=== PATIENT | female | born 1990 ===

== ENCOUNTER 2018-01-14 14:24 | Emergency (ER) | payer SELFPAY ==
[2018-01-14] MEDS ORDERED: XYLOCAINE 1% 20 mL ONE (15:04)
--- NOTE | 2018-01-14 15:05 | Emergency Department Report ---
Abscess Boil HPI - HPI Chief Complaint: Skin/Abscess/Foreign Body Stated Complaint: SPIDER BITE ON FINGER Duration: 5 Days Location: Upper Extremity (left index finger) Severity: Moderate History: Yes Pain, Yes Insect Bite, No Fever, No Purulent Drainage, No Numbness , No Foreign Body, No Previous History HPI: This is a 27-year-old -[place] female who presents with swelling and pain to left 2nd Finger. Patient reports pain as currently 8 out of 10 on pain scale and worse with touch. It is a throbbing constant sensation. There is swelling and drainage to left side. Patient states Thursday she noticed to small dots Center left second finger. She is applying ice with no improvement and swelling. Patient reports swelling and increased today with some drainage. She states she was bitten by spider. She denies numbness, tingling or fever. Home Medications: Previous Rx's Medication Instructions Recorded Last Taken Type Clindamycin [Clindamycin CAP] 300 mg PO Q8H #21 cap 01/14/18 Unknown Rx Naproxen [Naprosyn] 500 mg PO BID PRN #12 tablet 01/14/18 Unknown Rx Allergies/Adverse Reactions: Allergies Allergy/AdvReac Type Severity Reaction Status Date / Time No Known Allergies Allergy Unverified 01/14/18 14:32 ED Review of Systems ROS: Stated complaint: SPIDER BITE ON FINGER Other details as noted in HPI Constitutional: denies: chills, fever Respiratory: denies: cough, shortness of breath, wheezing Cardiovascular: denies: chest pain, palpitations Genitourinary: denies: urgency, dysuria, discharge Skin: lesions (swelling and pain to left index finger). denies: rash Neurological: denies: headache, weakness, paresthesias Psychiatric: denies: anxiety, depression ED Past Medical Hx - Past Medical History Previous Medical History?: No - Surgical History Past Surgical History?: No - Social History Smoking Status: Never Smoker Substance Use Type: None - Medications Home Medications: Home Medications Medication Instructions Recorded Confirmed Last Taken Type Clindamycin [Clindamycin CAP] 300 mg PO Q8H #21 cap 01/14/18 Unknown Rx Naproxen [Naprosyn] 500 mg PO BID PRN #12 tablet 01/14/18 Unknown Rx ED Abscess Boil Physical Exam - Exam General: Vital signs noted. No distress. Alert and acting appropriately. Front/Back of Body, Lg (Color): 1 - erythema, swelling, and tenderness at nail edge of 2nd phalanx, surrounding cellulitis Size: 1 cm (less than half a cm) Exam: Yes Tenderness, Yes Fluctuance, Yes Surrounding Cellulites/Erythema, Yes Normal Neurologic Exam, Yes Normal Circulation, No Lymphangitis, No Crepitation , No Heart Murmur I & D Note - I & D Note I & D Note: The area was prepared and draped in the usual, sterile manner. The site was anesthetized with 1% lidocaine without epinephrine. A linear incision along the local skin lines was made and the purulent material expressed. The abcess was explored thoroughly and sequestered pockets were opened. Bleeding was minimal. Packing: idodoform. Followup: The patient tolerated the procedure well without complications. Standard post-procedure care was explained and return precautions are given. ED Course Vital Signs 01/14/18 14:32 Temperature 99.1 F Pulse Rate 80 Respiratory 16 Rate Blood Pressure 143/97 O2 Sat by Pulse 100 Oximetry Critical care attestation.: If time is entered above; I have spent that time in minutes in the direct care of this critically ill patient, excluding procedure time. ED Medical Decision Making - Medical Decision Making This is a 27 y.o. female that presents with a painful abscess along 2nd nail fold for 5 days. No history of prior abscess. Suspected spider bite. Patient is stable and examined by me. No acute signs of distress noted. I&D refer to note. Given tetanus vaccine and analgesics while in the emergency room. Discussed plan to start clindamycin and naproxen with patient. Educated patient on follow up plan and wound reassessed in 2-3 days. Patient agrees to ED plan of care. Discharged home and follow up with PCP in 2-3 days. ED Disposition Clinical Impression: Paronychia of left little finger Cellulitis of index finger Qualifiers: Laterality: left Qualified Code(s): L03.012 - Cellulitis of left finger Disposition: TO HOME OR SELFCARE Is pt being admited?: No Does the pt Need Aspirin: No Condition: Stable Instructions: Paronychia (ED) Additional Instructions: Soak finger 3-4 times daily for 15 minutes with warm water. Complete full course of antibiotics as prescribed. Avoid drinking alcohol while taking antibiotics for up to 24 hours after completion to avoid stomach upset. Follow up with your primary care provider in 2-3 days for reevaluation of the wound. Prescriptions: Clindamycin [Clindamycin CAP] 300 mg PO Q8H #21 cap Naproxen [Naprosyn] 500 mg PO BID PRN #12 tablet PRN Reason: Pain , Severe (7-10) Referrals: [facility] [Outside] - 3-5 Days [facility] [Outside] - 3-5 Days [facility] [Outside] - 3-5 Days Forms: Work/School Release Form(ED) Time of Disposition: 16:12 Print Language: GUINEAN
[2018-01-14] MEDS ORDERED: XYLOCAINE 1% MPF 5 mL INFILTRATI ONE (15:07)
[2018-01-14] MEDS ORDERED: ULTRAM PO ONE (16:14)
[2018-01-14] MEDS ORDERED: BOOSTRIX IM ONE (16:14)
[2018-01-14 16:31] VITALS: BP 133/78
== END 2018-01-14 16:31 | disposition home or self-care (01) ==
LOC: ED 14:24
DX: L03.012 Cellulitis of left finger (principal)
CPT/HCPCS: 90471; 90715; 99282